=== PATIENT | female | born 1975 | race Caucasian/White ===

== ENCOUNTER 2019-03-23 13:23 | Emergency (ER) | payer MEDICAID, OTHER ==
[~2019-03-23] VITALS: Ht 160 cm; Wt 44.0 kg
--- NOTE | 2019-03-23 13:43 | NUR ---
PT C/O "FLIPPED OUT WHILE HAVING ARGUMENT WITH AND HIT HER HAND TO HER HEAD ONCE. AND THAT'S NOT NORMAL, SO WE'RE HERE". AT BEDSIDE. 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 CONNECTED TO MONITORING. CALL LIGHT IN REACH. MD AT BEDSIDE. AWAITING ORDERS AT THIS TIME.
[2019-03-23] MEDS ORDERED: QUETIAPINE 25MG TABLET ONE (14:27)
[2019-03-23 14:29] LABS: MICROSCOPIC NOT IND
[2019-03-23 14:30] VITALS: BP 128/80
--- NOTE | 2019-03-23 14:30 | NUR ---
MEDS ADMINISTERED PER JUL.
[2019-03-23 14:34] LABS: CULTURE INDICATED? NO
[2019-03-23 14:42] LABS: AMPHETAMINE SCREEN, URINE Negative (Negative); BARBITURATE SCREEN, URINE Negative (Negative); BENZODIAZEPINE SCREEN, URINE Negative (Negative); CANNABINOID SCREEN, URINE Positive (Negative); COCAINE SCREEN, URINE Negative (Negative); METHADONE SCREEN, URINE Negative (Negative); OPIATE SCREEN, URINE Negative (Negative)
[2019-03-23] MEDS ORDERED: QUETIAPINE 25MG TABLET PO ONE (15:00)
--- NOTE | 2019-03-23 15:30 | NUR ---
D/C INSTRUCTIONS, MEDS & F/U APPT RV'WD WITH PT, SHE VERBALIZES UNDERSTANDING. RX GIVEN X3. COMM[facility]ITY RESOURCES LIST PROVIDED TO PT AND INSTRUCTED PT TO F/U WITH [facility]. PT AMBULATED OUT OF ED WITH WITHOUT DIFFICULTY. Addendum: 03/23/19 at 1538 by SOFIA REPORT RC'VD FROM ISMA HARRIS PRIOR TO DISCHARGING PT.
== END 2019-03-23 15:41 | disposition home or self-care (01) ==
LOC: ED 15:20
DX: F41.1 Generalized anxiety disorder (principal)
CPT/HCPCS: 80307; 81003; 99284

== ENCOUNTER 2019-07-20 03:56 | Inpatient (IN) | payer MEDICAID, OTHER ==
[~2019-07-20] VITALS: Ht 165.1 cm; Wt 55.8 kg
[2019-07-20] MEDS ORDERED: QUET50TA5 PO (04:01)
[2019-07-20] MEDS ORDERED: LORazepam 2 MG/ML, 1ML ONE (04:59)
[2019-07-20] MEDS ORDERED: ONDANSETRON 2MG/ML, 2ML IVPush ONE (05:00)
[2019-07-20] MEDS ORDERED: LORazepam 2 MG/ML, 1ML IVPush ONE (05:00)
[2019-07-20] MEDS ORDERED: SODIUM CHLORIDE FLUSH 10ML SYR IVF ONE (05:00)
[2019-07-20] MEDS ORDERED: ONDANSETRON 2MG/ML, 2ML ONE (05:16)
[2019-07-20 05:33] LABS: BASOPHILS # (AUTO) 0.01 x10^3/uL (0-0.1); BASOPHILS % (AUTO) 0 % (0-1); EOSINOPHILS # (AUTO) 0.16 x10^3/uL (0-0.4); EOSINOPHILS % (AUTO) 1 % (1-7); LYMPHOCYTES # (AUTO) 1.43 x10^3/uL (1-3.4); LYMPHOCYTES % (AUTO) 10 % (22-44); MD NO; MEAN CORPUSCULAR HEMOGLOBIN 33.1 pg (27.0-34.8); MEAN CORPUSCULAR VOLUME 97.2 fL (80-100); MEAN PLATELET VOLUME 8.1 fL (7.4-10.4); MONOCYTES # (AUTO) 0.49 x10^3/uL (0.2-0.8); MONOCYTES % (AUTO) 3 % (2-9); NEUTROPHILS # (AUTO) 12.97 x10^3/uL (1.8-6.8); NEUTROPHILS % (AUTO) 86 % (42-75); PLATELET COUNT 310 x10^3/uL (130-400); RED BLOOD COUNT 3.94 x10^6/uL (3.82-5.3); RED CELL DISTRIBUTION WIDTH 13.8 % (9.6-15.2)
[2019-07-20 05:38] LABS: ALBUMIN 3.9 g/dL (3.4-5.0); ANION GAP 7 mmol/L (5-15); CALCIUM 9.1 mg/dL (8.5-10.1); CHLORIDE 106 mmol/L (98-107)
[2019-07-20 05:41] LABS: ALANINE AMINOTRANSFERASE 84 U/L (12-78); ALKALINE PHOSPHATASE 77 U/L (45-117); BILIRUBIN,TOTAL 0.4 mg/dL (0.2-1.0); CREATININE 0.83 mg/dL (0.55-1.02); TOTAL PROTEIN 7.5 g/dL (6.4-8.2)
[2019-07-20] MEDS ORDERED: PROMETHAZINE 25 MG/ML, 1ML ONE (05:41)
--- NOTE | 2019-07-20 05:46 | NUR ---
PT INSTRUCTED TO VOID WHEN ABLE. PT MEDICATED PER JUL.
[2019-07-20] MEDS ORDERED: PROMETHAZINE 25 MG/ML, 1ML IM ONE (06:00)
--- NOTE | 2019-07-20 06:09 | NUR ---
CT PENDING NEG. HCG.
--- NOTE | 2019-07-20 06:21 | NUR ---
PT RESTING COMFORTABLY IN GURNEY AT THIS TIME. PT REPORTS THAT PHENERGAN HAS RELIEVED NAUSEA. URINE COLLECTED AND SENT TO LAB IN TUBE SYSTEM AT THIS TIME.
[2019-07-20 06:36] LABS: CULTURE INDICATED? NO; MICROSCOPIC NOT IND
--- NOTE | 2019-07-20 06:56 | NUR ---
report of pt to everton briggs. all questions answered.
--- NOTE | 2019-07-20 07:01 | NUR ---
REPORT RECEIVED FROM YASIR HARRIS.
--- NOTE | 2019-07-20 07:02 | NUR ---
PT IN CT NOW.
[2019-07-20] MEDS ORDERED: OMNIPAQUE 350 MG/ML, 100ML BOTTLE ONE (07:03)
[2019-07-20] MEDS ORDERED: HYDROmorphone 1 MG/ML, 1ML INJ ONE (07:55)
[2019-07-20] MEDS ORDERED: HYDROmorphone 2 MG/ML, 1ML IVPush PRN (08:00)
--- NOTE | 2019-07-20 08:03 | NUR ---
TASK RN: PT MEDICATED FOR PAIN PER MAR
[2019-07-20] MEDS ORDERED: SODIUM CHLORIDE 0.9% 1,000 ML IV ONE (08:11)
--- NOTE | 2019-07-20 08:24 | NUR ---
NS INFUSING AT THIS TIME. PT TOLERATED WELL. HOSPITALIST AT BEDSIDE AT THIS TIME.
[2019-07-20] MEDS ORDERED: SODIUM CHLORIDE FLUSH 10ML SYR IVF PRN (08:30)
[2019-07-20] MEDS ORDERED: PIPERACILLIN/TAZO/PMX 4.5GM 100 ML IV SCH (08:30)
--- NOTE | 2019-07-20 08:55 | NUR ---
MEDICATION ORDERED AT THIS TIME.
--- NOTE | 2019-07-20 09:01 | NUR ---
ABX INFUSING AT THIS TIME. PT TOLERATED WELL. PT'S AOX4. RESPS EVEN AND UNLABORED.
--- NOTE | 2019-07-20 09:59 | NUR ---
PT SLEEPING IN [facility]. RESPS EVEN AND UNLABORED. BP/SPO2 MONITORS IN PLACE. CALL LIGHT WITHIN REACH.
--- NOTE | 2019-07-20 11:20 | NUR ---
PT SLEEPING IN [facility]. RESPS EVEN AND UNLABORED. BP/SPO2 MONITORS IN PLACE. CALL LIGHT WITHIN REACH.
--- NOTE | 2019-07-20 12:33 | NUR ---
REPORT GIVEN TO SHARON. ALL QUESTIONS ANSWERED.
[2019-07-20 14:17] VITALS: BP 106/67
[2019-07-20] MEDS: PIPERACILLIN/TAZO/PMX 4.5GM 100 ML IV SCH ×2 (16:30→21:55)
[2019-07-20 19:10] VITALS: BP 99/63
[2019-07-20] MEDS: QUETIAPINE 25MG TABLET PO SCH (20:19)
[2019-07-20] MEDS: ACETAMINOPHEN 325 MG TABLET PO PRN (21:55)
[2019-07-20] MEDS: LORazepam 2 MG/ML, 1ML IVPush PRN (23:13)
[2019-07-21 03:58] VITALS: BP 96/67
[2019-07-21] MEDS: PIPERACILLIN/TAZO/PMX 4.5GM 100 ML IV SCH ×4 (04:49→22:34)
[2019-07-21 06:22] LABS: BASOPHILS # (AUTO) 0.03 x10^3/uL (0-0.1); BASOPHILS % (AUTO) 1 % (0-1); EOSINOPHILS # (AUTO) 0.17 x10^3/uL (0-0.4); EOSINOPHILS % (AUTO) 2 % (1-7); LYMPHOCYTES # (AUTO) 1.84 x10^3/uL (1-3.4); LYMPHOCYTES % (AUTO) 26 % (22-44); MD NO; MEAN CORPUSCULAR HEMOGLOBIN 33.2 pg (27.0-34.8); MEAN CORPUSCULAR HGB CONC 34.3 g/dL (32.4-35.8); MEAN CORPUSCULAR VOLUME 96.6 fL (80-100); MEAN PLATELET VOLUME 8.1 fL (7.4-10.4); MONOCYTES # (AUTO) 0.61 x10^3/uL (0.2-0.8); MONOCYTES % (AUTO) 9 % (2-9); NEUTROPHILS # (AUTO) 4.54 x10^3/uL (1.8-6.8); NEUTROPHILS % (AUTO) 63 % (42-75); PLATELET COUNT 261 x10^3/uL (130-400); RED CELL DISTRIBUTION WIDTH 13.9 % (9.6-15.2)
[2019-07-21 06:34] LABS: ALANINE AMINOTRANSFERASE 61 U/L (12-78); ALBUMIN 3.2 g/dL (3.4-5.0); ANION GAP 7 mmol/L (5-15); CALCIUM 8.3 mg/dL (8.5-10.1); CHLORIDE 112 mmol/L (98-107)
[2019-07-21 06:37] LABS: ALKALINE PHOSPHATASE 42 U/L (45-117); BILIRUBIN,TOTAL 0.8 mg/dL (0.2-1.0); CREATININE 0.83 mg/dL (0.55-1.02)
[2019-07-21 09:12] VITALS: BP 112/76
[2019-07-21 14:00] VITALS: BP 97/63
[2019-07-21] MEDS: ACETAMINOPHEN 325 MG TABLET PO PRN (15:42)
[2019-07-21] MEDS: LORazepam 2 MG/ML, 1ML IVPush PRN (16:31)
[2019-07-21 17:18] VITALS: BP 97/63
[2019-07-21 19:41] VITALS: BP 99/63
[2019-07-21] MEDS: QUETIAPINE 25MG TABLET PO SCH (20:22)
[2019-07-22 02:06] VITALS: BP 95/60
[2019-07-22] MEDS: PIPERACILLIN/TAZO/PMX 4.5GM 100 ML IV SCH ×2 (04:06→09:14)
[2019-07-22] MEDS ORDERED: METR500T PO (07:46)
[2019-07-22] MEDS ORDERED: CEFD300C37 PO (07:46)
[2019-07-22 08:15] VITALS: BP 119/80
[2019-07-22] MEDS: ACETAMINOPHEN 325 MG TABLET PO PRN (09:14)
== END 2019-07-22 11:51 | disposition home or self-care (01) | DRG 389 ==
LOC: ED 04:43 → EDIP 08:11 → SUATTDRO 08:17 → 3N 13:08 → DCLOUNGE 07-22 11:20
PROVIDERS: ADMIT Hospitalist; ATTEND Hospitalist
DX: K56.2 Volvulus (principal); A69.20 Lyme disease, unspecified; R65.10 Systemic inflammatory response syndrome (SIRS) of non-infectious origin without acute organ dysfunction; D72.829 Elevated white blood cell count, unspecified; F12.90 Cannabis use, unspecified, uncomplicated; F41.1 Generalized anxiety disorder
CPT/HCPCS: 36415; 74177; 80053; 81003; 81025; 83605; 83690; 85025; 96365; 96372; 96375; 99285; G0378; J1170; J2405; J2543; J2550; Q9967; J2060; J7030

== ENCOUNTER 2021-02-06 08:20 | Emergency (ER) | payer OTHER ==
[~2021-02-06] VITALS: Ht 160 cm; Wt 63.8 kg
[~2021-02-06 08:20] MED LIST: CEFD300C37 PO; METR500T PO; QUET50TA5 PO
[2021-02-06 09:29] LABS: BASOPHILS % (AUTO) 1 % (0-1); EOSINOPHILS % (AUTO) 2 % (1-7); LYMPHOCYTES % (AUTO) 15 % (22-44); MEAN CORPUSCULAR HEMOGLOBIN 32.6 pg (27.0-34.8); MEAN CORPUSCULAR HGB CONC 34.2 g/dL (32.4-35.8); MONOCYTES % (AUTO) 9 % (2-9); NEUTROPHILS % (AUTO) 72 % (42-75); PLATELET COUNT 340 x10^3/uL (130-400); RED BLOOD COUNT 4.19 x10^6/uL (3.82-5.3); RED CELL DISTRIBUTION WIDTH 13.2 % (9.6-15.2)
[2021-02-06 09:38] LABS: ANION GAP 4 mmol/L (5-15); CALCIUM 9.2 mg/dL (8.5-10.1); CHLORIDE 111 mmol/L (98-107)
[2021-02-06 09:44] LABS: CREATININE 0.92 mg/dL (0.55-1.02)
--- NOTE | 2021-02-06 10:10 | NUR ---
production designer: Pt to room from lobby at this time via wheelchair.
[2021-02-06] MEDS ORDERED: LIDOCAINE GEL 2%, 5ML ONE (10:42)
[2021-02-06 10:53] LABS: MICROSCOPIC NOT IND
--- NOTE | 2021-02-06 10:54 | NUR ---
REPORT GIVEN TO ELISA HARRIS.
[2021-02-06] MEDS ORDERED: LIDOCAINE GEL 2%, 5ML TP ONE (11:00)
--- NOTE | 2021-02-06 11:42 | NUR ---
PT OFF UNIT FOR CT.
--- NOTE | 2021-02-06 12:16 | NUR ---
PT C/O ABD PAIN AROUND BELLY BUTTON, WILL UPDATE ERMD.
[2021-02-06] MEDS ORDERED: HYDROcodone/APAP 5/325 TABLET ONE (12:35)
[2021-02-06 12:39] VITALS: BP 135/84
[2021-02-06] MEDS ORDERED: HYDROcodone/APAP 5/325 TABLET PO ONE (13:00)
== END 2021-02-06 13:30 | disposition home or self-care (01) ==
LOC: ED 08:33
DX: A09 Infectious gastroenteritis and colitis, unspecified (principal); A60.1 Herpesviral infection of perianal skin and rectum
CPT/HCPCS: 36415; 71045; 74176; 80048; 81003; 82040; 84703; 85025; 99285